=== PATIENT | female | born 1985 | race Caucasian/White ===

== ENCOUNTER 2017-05-13 12:13 | Emergency (ER) | payer SELFPAY ==
[~2017-05-13] VITALS: Ht 157.5 cm; Wt 68.0 kg
[2017-05-13 12:25] VITALS: BP 156/93
--- NOTE | 2017-05-13 12:27 | PHYS DOC ---
Adult General Chief Complaint Chief Complaint: EARACHE/EAR PAIN HPI HPI Patient is a 32 year old female presenting to the emergency department for evaluation of right ear pain jaw pain sinus pain that started this morning. 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 Patient denies any fevers chills nausea vomiting or other systemic symptoms. She has not seen anyone for this issue as she does not have insurance she says that the pain was too much this morning. Review of Systems Review of Systems Constitutional: Denies fever or chills [] HENT: + nasal congestion. No sore throat [] Respiratory: Denies cough or shortness of breath [] Allergies Allergies Allergies Coded Allergies Type Severity Reaction Last Updated Verified tramadol Allergy Mild "MAKES ME FEEL LIKE I HAVE THE FLU" 05/13/17 No Physical Exam Physical Exam Constitutional: Well developed, well nourished, no acute distress, non-toxic appearance. [] HENT: Normocephalic, atraumatic, bilateral tympanic membranes clear with no bulging or erythema, oropharynx moist, cavity noted on upper and lower right molars but no swelling or infection noted, boggy nasal treatments, maxillary sinus tenderness to palpation on right, no mastoid ttp. Neck: Normal range of motion, no tenderness, supple, no stridor. [] Current Patient Data Vital Signs Vital Signs Date Time Temp Pulse Resp B/P (MAP) Pulse Ox O2 Delivery O2 Flow Rate FiO2 05/13/17 12:25 98.1 74 16 100 Room Air 98.1 EKG EKG [] Radiology/Procedures Radiology/Procedures [] Course & Med Decision Making Course & Med Decision Making Patient says that certain positions such as bending over makes her pain worse in her face and ear which goes more along with sinus infection. Given the chronicity of this may be more of a fungal infection however she has not been treated with antibiotics we'll try Zithromax NSAIDs antihistamines Nasonex and refer her to ENT. Patient aware and agreeable with plan and verbalized understanding of the above instructions. Dragon Disclaimer Dragon Disclaimer This electronic medical record was generated, in whole or in part, using a voice recognition dictation system. Departure Departure Impression: Primary Impression: Sinusitis Disposition: 01 HOME, SELF-CARE Condition: GOOD Patient Instructions: Sinusitis Additional Instructions: TAKE 400MG OF IBUPROFEN EVERY 6 HOURS AND THE NORCO FOR BREAKTHROUGH PAIN. USE THE NASONEX. DR. PATHAK - [phone] PATHAK. MAKE SURE TO SAY YOU ARE [facility] RESIDENT. Scripts Loratadine/Pseudoephedrine (CLARITIN-D 12 HOUR TABLET) 1 Each Tab.er.12h 1 TAB PO BID, #8 TAB Prov: TWAN BRUMFIELD DO 05/13/17 Azithromycin (ZITHROMAX) 250 Mg Tablet 1 PKG PO UD, #6 TAB Prov: TWAN BRUMFIELD DO 05/13/17 Hydrocodone/Apap 5-325 (NORCO 5-325 TABLET) 1 Each Tablet 1 TAB PO PRN Q6HRS Y for PAIN, #10 TAB 0 Refills Prov: TWAN BRUMFIELD DO 05/13/17 Problem Qualifiers Primary Impression: Sinusitis Sinusitis location: maxillary Chronicity: unspecified Qualified Codes: J32.0 - Chronic maxillary sinusitis TWAN BRUMFIELD DO May 13, 2017 12:27
[2017-05-13] MEDS ORDERED: HYDR-971 PO (12:46)
[2017-05-13] MEDS ORDERED: AZIT250T PO (12:46)
[2017-05-13] MEDS ORDERED: LORA1TAB47 PO (12:46)
== END 2017-05-13 12:57 | disposition home or self-care (01) ==
LOC: ER 12:13
DX: J32.0 Chronic maxillary sinusitis (principal); H92.01 Otalgia, right ear; Z88.5 Allergy status to narcotic agent
CPT/HCPCS: 99283